=== PATIENT | female | born 1965 | race Caucasian/White ===

== ENCOUNTER → 2016-08-02 | Outpatient (CLI) | payer OTHER ==
--- NOTE | 2016-08-02 11:49 | US ---
Transabdominal and Endovaginal Pelvic Ultrasound Clinical History: 51-year-old female with right pelvic tenderness. 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 She had a hysterectomy 4 years ago due to endometriosis. She is . TECHNIQUE: A curvilinear 5 MHz transducer was initially used to sonographically evaluate the pelvis, using a full urinary bladder as a window. To better assess the uterine architecture and the adnexal s tructures, endovaginal pelvic sonography was also performed. Color and spectral Doppler were used. Comparison: None available. Findings: Transabdominal Pelvic Sonography: The uterus is surgically absent. The visualized aspects of the urin destiney bladder are normal. The right adnexal region is obscured by bowel gas. There is a "candidate" str ucture for the left ovary in the adnexal region, however this will be better assessed endovaginally. Endovaginal Pelvic Sonography: The patient has had a prior hysterectomy. The vaginal cuff is unremark able. The left ovary measures 3.3 x 2.0 x 2.7 cm, and contains an anechoic, avascular simple cyst sonam suring 2.4 x 1.6 x 2.1 cm. Intraovarian vascular flow is documented, with a resistive index of 0.61. The right ovary is surgically absent, and there is no adnexal mass or free fluid. Impression: 1. Status post hysterectomy and right oophorectomy, with no evidence of a right adnexal mass. 2. There is a simple-appearing 2.4 cm left ovarian cyst, with no torsion or free fluid.
== END ==
LOC: CIMAGING 10:30
PROVIDERS: ATTEND Family Medicine
DX: N83.202 Unspecified ovarian cyst, left side (principal); Z90.710 Acquired absence of both cervix and uterus; Z90.721 Acquired absence of ovaries, unilateral
CPT/HCPCS: 76856-PO